=== PATIENT | male | born 1975 | race Two or more races ===

== ENCOUNTER 2023-06-19 04:12 | Emergency (ER) | payer OTHER ==
[~2023-06-19] VITALS: Ht 175.3 cm; Wt 128.4 kg
[2023-06-19] MEDS ORDERED: KETOROLAC TROMETHAMINE INJ 30 MG/ML VIAL IM ONE (04:30)
[2023-06-19] MEDS ORDERED: CYCLOBENZAPRINE 10 MG TABLET PO ONE (04:30)
[2023-06-19] MEDS ORDERED: ACETAMINOPHEN ES 500 MG TABLET PO ONE (04:30)
[2023-06-19] MEDS ORDERED: CYCLOBENZAPRINE 10 MG TABLET ONE (04:36)
[2023-06-19] MEDS ORDERED: ACETAMINOPHEN ES 500 MG TABLET ONE (04:36)
[2023-06-19] MEDS ORDERED: KETOROLAC TROMETHAMINE INJ 30 MG/ML VIAL ONE (04:36)
[2023-06-19 06:01] VITALS: BP 129/83; TEMP 98; O2SAT 99
== END 2023-06-19 06:02 | disposition home or self-care (01) ==
LOC: ER 04:14
DX: G89.18 Other acute postprocedural pain (principal); M54.50 Low back pain, unspecified; I10 Essential (primary) hypertension; F32.A Depression, unspecified; F41.9 Anxiety disorder, unspecified; Z88.8 Allergy status to other drugs, medicaments and biological substances
CPT/HCPCS: 99283; 96372; J1885

== ENCOUNTER 2023-06-21 03:09 | Emergency (ER) | payer OTHER ==
[~2023-06-21] VITALS: Ht 175.3 cm; Wt 129.3 kg
[2023-06-21 04:50] VITALS: BP 143/78; TEMP 98; O2SAT 98
== END 2023-06-21 05:12 | disposition left against medical advice (07) ==
LOC: ER 03:11
DX: G89.18 Other acute postprocedural pain (principal); M54.50 Low back pain, unspecified; I10 Essential (primary) hypertension; F32.A Depression, unspecified; F41.9 Anxiety disorder, unspecified; Z88.8 Allergy status to other drugs, medicaments and biological substances
CPT/HCPCS: 99281; J7030